=== PATIENT | male | born 1955 | race Caucasian/White ===

== ENCOUNTER 2024-02-25 18:39 | Emergency (ER) | payer MEDICARE, OTHER, SELFPAY ==
[2024-02-25] VITALS (12 sets, daily range): BP systolic 95–129; BP diastolic 46–74; PULSE 74–101; TEMP 37.4; O2SAT 95–99; BMI 28.2
--- NOTE | 2024-02-25 18:52 | ECG_ITS ---
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
--- NOTE | 2024-02-25 19:20 | ED.GENADUL1 ---
HPI HPI - General Adult General Chief complaint: Chest Pain Stated complaint: LOW BP, HR HIGH, INDIGESTION Time Seen by Provider: 02/25/24 19:15 Source: patient Mode of arrival: walk-in Limitations: no limitations History of Present Illness HPI narrative: denies past history of CAD or smoking cigarettes. 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 Concern about possible UTI symptoms since yesterday. Also dry heaves for a couple of days and has avoided eating concerned he may vomit. Denies chest pain or abdominal pain. Drinking fluids. Family states fever at home. Related Data Allergies Allergy/AdvReac Type Severity Reaction Status Date / Time No Known Drug Allergies Allergy Verified 02/25/24 18:49 Opioid HPI Opioid Management Most Recent Opioid Data: No Data to Display Review of Systems ROS Status of ROS 10 or more systems reviewed and unremarkable except as noted in history and below Exam Constitutional Vital Signs, click to edit/add: Last Vital Signs Temp 99.4 F 02/25/24 18:46 Pulse 87 02/25/24 21:30 Resp 17 02/25/24 21:30 BP 108/56 02/25/24 21:14 Pulse Ox 96 02/25/24 20:30 O2 Del Method Room Air 02/25/24 18:46 Common normals: no apparent distress, average body habitus, oriented x3, no limitations, healthy appearing, alert and well nourished [facility] Common normals: normocephalic and head/scalp atraumatic Eye Common normals: EOMs intact bilaterally and conjunctivae normal Respiratory Common normals: normal respiratory effort, no retractions, no use of accessory muscles and clear to auscultation bilaterally Cardio Common normals: regular rate, regular rhythm, S1 normal heart sound and S2 normal heart sound GI Common normals: Normal to inspection, nondistended, normoactive bowel sounds present, soft to palpation and non-tender Extremity Common normals: normal to inspection Neuro Common normals: oriented x3, CN's II-XII intact bilaterally, moves all extremities and no focal motor deficits Psych Appearance: grossly normal Course Vital Signs Vital signs: Vital Signs Temperature 99.4 F 02/25/24 18:46 Pulse Rate 89 02/25/24 18:46 Respiratory Rate 18 02/25/24 18:46 Blood Pressure 126/58 02/25/24 18:46 Pulse Oximetry 96 02/25/24 18:46 Oxygen Delivery Method Room Air 02/25/24 18:46 Temperature 99.4 F 02/25/24 18:46 Pulse Rate 87 02/25/24 21:30 Respiratory Rate 17 02/25/24 21:30 Blood Pressure 108/56 02/25/24 21:14 Pulse Oximetry 96 02/25/24 20:30 Oxygen Delivery Method Room Air 02/25/24 18:46 Medical Decision Making MDM Narrative Medical decision making narrative: patient presents concern about possible UTI. has had one before. Complained of dry heaving and decreased intake because of it. Fever at home. On arrival here temp 99.4. Monitor and EKG NSR with PACs. Patient denies any chest pain or dyspnea. d-dimer positive. No PE with CTA chest but found to have small left thyroid nodule. Patient advised to follow up with his doctor regarding the nodule serial troponin neg. Orthostatic vital signs with orthostatic tachycardia. Patient was hydrated with 2L NS UA positive and WBC elevated with normal lactic acid. Patient given dose of Rocephin and discharged home with a prescription of Bactrim ds and zofran prn Lab Data Labs: Lab Results 02/25/24 02/25/24 02/25/24 Range/Units 18:55 19:41 22:17 WBC 26.2 H (4.0-11.0) 10^3/uL RBC 3.92 L (4.70-6.10) 10^6/uL Hgb 12.6 L (14.0-18.0) g/dL Hct 37.7 L (42.0-54.0) % MCV 96.2 H (80.0-94.0) fL MCH 32.1 (25.9-34.0) pg MCHC 33.4 (29.9-35.2) g/dL RDW 13.6 (11.0-15.0) % Plt Count 272 (150-450) 10^3/uL MPV 9.3 L (9.5-13.5) fL Seg Neuts % (Manual) 91.0 Lymphocytes % (Manual) 2.0 L (20.5-60.0) % Atypical Lymphs % (Man) 2.0 % Monocytes % (Manual) 6.0 (1.7-12.0) % Eosinophils % (Manual) 0.0 L (0.9-7.0) % Basophils % (Manual) 0.0 L (0.2-2.0) % Neutrophils # (Manual) 23.84 H (1.4-6.5) 10^3/uL Lymphocytes # (Manual) 0.52 L (1.20-3.80) 10^3/uL Abs Atypical Lymphs Man 0.52 Monocytes # (Manual) 1.57 H (0.30-0.80) 10^3/uL Eosinophils # (Manual) 0.00 (0.00-0.70) 10^3/uL Basophils # (Manual) 0.00 (0.00-0.10) 10^3/uL Hypersegmented Neuts 2+ Toxic Vacuolation 3+ D-Dimer 0.84 H* (<=0.59) mg/L FEU Sodium 132 L (136-145) mmol/L Potassium 4.0 (3.5-5.1) mmol/L Chloride 98 (98-107) mmol/L Carbon Dioxide 26.5 (21.0-32.0) mmol/L Anion Gap 11.5 BUN 15.0 (7.0-18.0) mg/dL Creatinine 1.09 (0.70-1.30) mg/dL Est GFR ( Amer) >60 (>=60) Est GFR (Non-Af Amer) >60 (>=60) BUN/Creatinine Ratio 13.8 Glucose 132 H (74-106) mg/dL Lactate 1.6 (0.4-2.0) mmol/L Calcium 8.9 (8.5-10.1) mg/dL Total Bilirubin 0.8 (0.2-1.0) mg/dL AST 11 L (15-37) U/L ALT 13 L (16-63) U/L Alkaline Phosphatase 96 (46-116) U/L Troponin I High Sens 8.7 9.2 (4.0-76.1) pg/mL Total Protein 7.4 (6.4-8.2) g/dL Albumin 3.2 L (3.4-5.0) g/dL Globulin 4.2 g/dL Albumin/Globulin Ratio 0.8 Urine Color Dk. yellow (YELLOW) Urine Clarity Clear (CLEAR) Urine pH 6.0 (5.0-9.0) Ur Specific [place] >=1.030 A (1.005-1.025) Urine Protein 100 A (NEG/TRACE) mg/dL Urine Glucose (UA) Negative (NEGATIVE) mg/dL Urine Ketones 15 A (NEGATIVE) mg/dL Urine Occult Blood Large A (NEGATIVE) Urine Nitrite Negative (NEGATIVE) Urine Bilirubin Small A (NEGATIVE) Urine Urobilinogen 1.0 (0.2-1.0) EU/dL Ur Leukocyte Esterase Small A (NEGATIVE) Urine RBC 2-5 A (0-2) #/HPF Urine WBC 10-20 A (NONE SEEN) #/HPF Ur Squamous Epith Cells Few A (NONE/RARE) #/LPF Ur Transition Epith Cell Rare A (NONE SEEN) #/LPF Urine Crystals None seen (None Seen) #/HPF Urine Bacteria Large A (NONE SEEN) #/HPF Urine Casts None seen (NONE SEEN) #/LPF Urine Mucus Large A (NONE SEEN) Ur Culture Indicated? Yes Imaging Data Chest x-ray: Radiologist's impression: ITS Impressions Chest X-Ray 02/25/24 19:23 IMPRESSION: No plain film evidence for acute cardiopulmonary disease. Electronically authenticated by: URIEL MANE Date: 02/25/2024 20:15 Chest CTA 02/25/24 20:41 IMPRESSION: No evidence for acute pulmonary embolism. No acute pulmonary consolidation. Small low-attenuation nodule of left lobe thyroid gland. Outpatient routine thyroid ultrasound should be obtained for additional evaluation. Electronically authenticated by: CYNTHIA SANTOS Date: 02/25/2024 21:56 Discharge Plan Discharge Stand Alone Forms: Portal Instructions Chief Complaint: Chest Pain Clinical Impression: Left thyroid nodule, Acute dehydration, Leukocytosis, Bacterial UTI Patient Disposition: Home, Self-Care Print Language: Burkinan Instructions: Dehydration (ED), Urinary Tract Infection in Men (ED), Thyroid Nodules (ED) Additional Instructions: drink plenty of fluids and follow up with your doctor in a couple of days for recheck Referrals: AMY SHEPARD [Primary Care Provider] - 1 week
--- NOTE | 2024-02-25 19:23 | XR_ITS ---
The [address] [address] Patient Name: RIP ARANDA MRN: [id number] date: 1955 Sex: M Assigned Patient Location: ER Current Patient Location: ED.MAIN Accession/Order Number: [id number] Exam Date: 02/25/2024 19:30 Report Date: 02/25/2024 20:15 At the request of: JATIN NGUYEN Procedure: XR chest 1V CXR HISTORY: Fever diarrhea for active chest pressure and indigestion COMPARISON: None. TECHNIQUE: 1 view of the chest submitted for review. FINDINGS: Eye glasses overlie the lower left chest. Lines and tubes: None Lungs are hyperaerated. No acute infiltrate. No effusion. The cardiac silhouette measures within normal. Pulmonary vascularity is unremarkable. Osseous structures are normal for age. XR/XR chest 1V IMPRESSION: No plain film evidence for acute cardiopulmonary disease. Electronically authenticated by: URIEL MANE Date: 02/25/2024 20:15
[2024-02-25 19:28] LABS: Hematocrit 37.7 % (42.0-54.0); Hemoglobin 12.6 g/dL (14.0-18.0); Mean Corpuscular HGB Conc 33.4 g/dL (29.9-35.2); Mean Corpuscular Hemoglobin 32.1 pg (25.9-34.0); Mean Corpuscular Volume 96.2 fL (80.0-94.0); Mean Platelet Volume 9.3 fL (9.5-13.5); Platelet Count 272 10^3/uL (150-450); Red Blood Count 3.92 10^6/uL (4.70-6.10); Red Cell Distribution Width 13.6 % (11.0-15.0); White Blood Count 26.2 10^3/uL (4.0-11.0)
[2024-02-25] MEDS: 0.9 % SODIUM CHLORIDE 1,000 ML 999 ML IV ×2 (19:34→22:57)
[2024-02-25 19:45] LABS: Alanine Aminotransferase 13 U/L (16-63); Albumin Globulin Ratio 0.8; Albumin Level 3.2 g/dL (3.4-5.0); Alkaline Phosphatase 96 U/L (46-116); Anion Gap 11.5; Aspartate Amino Transferase 11 U/L (15-37); BUN Creatinine Ratio 13.8; Bilirubin Total 0.8 mg/dL (0.2-1.0); Calcium 8.9 mg/dL (8.5-10.1); Carbon Dioxide 26.5 mmol/L (21.0-32.0); Chloride 98 mmol/L (98-107); Estimated GFR (African America >60 (>=60); Estimated GFR (Non-African Ame >60 (>=60); Globulin 4.2 g/dL; Glucose 132 mg/dL (74-106); Sodium 132 mmol/L (136-145); Total Protein 7.4 g/dL (6.4-8.2)
[2024-02-25 19:47] LABS: Lactate/Lactic Acid 1.6 mmol/L (0.4-2.0); Troponin I High Sensitivity 8.7 pg/mL (4.0-76.1)
[2024-02-25 19:48] LABS: Bilirubin Urine SMALL (NEGATIVE); Blood Urine LARGE (NEGATIVE); Clarity Urine CLEAR (CLEAR); Color Urine DK. YELLOW (YELLOW); Glucose Urine UA NEGATIVE (NEGATIVE); Ketones Urine 15 mg/dL (NEGATIVE); Leukocyte Esterase Urine SMALL (NEGATIVE); Nitrite Urine NEGATIVE (NEGATIVE); Protein Urine 100 mg/dL (NEG/TRACE); Specific Gravity Urine >=1.030 (1.005-1.025)
[2024-02-25 19:49] LABS: D Dimer 0.84 mg/L FEU (<=0.59)
[2024-02-25 19:50] LABS: Urine Microscopic Indicated YES
[2024-02-25 19:54] LABS: Atypical Lymphocytes Abs Man 0.52; Hypersegmented Neutrophils 2+; Lymphocytes Absolute Manual 0.52 10^3/uL (1.20-3.80); Monocytes Absolute Manual 1.57 10^3/uL (0.30-0.80); Segmented Neut Absolute Manual 23.84 10^3/uL (1.4-6.5); Toxic Vacuolation 3+
[2024-02-25 19:57] LABS: Bacteria Urine LARGE #/HPF (NONE SEEN); Cast Seen? NONE SEEN #/LPF (NONE SEEN); Crystals Seen? None Seen #/HPF (None Seen); Mucus Urine LARGE (NONE SEEN); Squamous Epithelial Cell Urine FEW #/LPF (NONE/RARE); Transitional Epi Cells Urine RARE #/LPF (NONE SEEN); Urine Culture Indicated YES
--- NOTE | 2024-02-25 20:41 | CT_ITS ---
[address] [address] Patient Name: RIP ARANDA MRN: [id number] date: 1955 Sex: M Assigned Patient Location: ER Current Patient Location: Accession/Order Number: [id number] Exam Date: 02/25/2024 21:04 Report Date: 02/25/2024 21:56 At the request of: JATIN NGUYEN Procedure: CT angio chest EXAM: CT angio chest TECHNIQUE: Axial CT angiogram technique imaging was obtained of the chest following intravenous contrast administration and including sagittal and coronal slab maximum intensity projection images. 3-D volume rendering created of the thoracic vasculature. Dose reduction techniques were achieved by using automated exposure control and/or adjustment of mA and/or kV according to patient size and/or use of iterative reconstruction technique. HISTORY: elevated d-dimer COMPARISON: None. FINDINGS: Neck and Axilla: No lower neck or axillary lymphadenopathy. 20 mm low-attenuation nodule of the left lobe thyroid gland. Mediastinum and Samantha: No hilar or mediastinal lymphadenopathy. Heart and Major Vessels: The heart appears unremarkable for size without pericardial effusion. The aorta and central pulmonary arteries are unremarkable for size.No pulmonary artery filling defects to suggest acute pulmonary embolism. Lung Mullen: No acute consolidation. Moderate bilateral dependent atelectasis. Small benign calcified granuloma at the right lung base. Pleural Spaces: No significant pleural effusion. No pneumothorax. Upper Abdomen: No acute abnormality identified. Chest Wall: No acute abnormality. CT/CT angio chest IMPRESSION: No evidence for acute pulmonary embolism. No acute pulmonary consolidation. Small low-attenuation nodule of left lobe thyroid gland. Outpatient routine thyroid ultrasound should be obtained for additional evaluation. Electronically authenticated by: CYNTHIA SANTOS Date: 02/25/2024 21:56
[2024-02-25] MEDS: CEFTRIAXONE 1,000 MG in 0.9 % SODIUM CHLORIDE 50 ML 100 MG IV (21:09)
[2024-02-25 22:43] LABS: Troponin I High Sensitivity 9.2 pg/mL (4.0-76.1)
== END 2024-02-25 23:40 | disposition home or self-care (01) ==
PROVIDERS: Emergency Provider Internal Medicine; PCP Family Medicine
DX: N39.0 Urinary tract infection, site not specified (principal); E86.0 Dehydration; E04.1 Nontoxic single thyroid nodule; D72.829 Elevated white blood cell count, unspecified
CPT/HCPCS: 36415; 71045; 71275; 80053; 81001; 83605; 84484; 85007; 85027; 85378; 87086; 87150; 87186; 93005; 96361; 96365; 99285; J0696; Q9967